=== PATIENT | female | born 1995 | race Caucasian/White ===

== ENCOUNTER 2017-11-07 05:41 | Day surgery (SDC) | payer BC ==
[2017-11-07] VITALS (14 sets, daily range): BP systolic 99–134; BP diastolic 42–90
[~2017-11-07] VITALS: Ht 160 cm; Wt 52.6 kg
[~2017-11-07 05:41] MED LIST: LATUDA40 MG PO
[2017-11-07] MEDS ORDERED: CELEXA10 MG ORAL (06:09)
[2017-11-07] MEDS ORDERED: BUPROPION XL300 M1 PO (06:09)
[2017-11-07] MEDS ORDERED: TESTOSTERO200 MG/1 M IM (06:37)
[2017-11-07] MEDS ORDERED: EPINEPHrine 1mg/1ml Amp ONE (07:11)
[2017-11-07] MEDS ORDERED: Bacitracin 50000 Units Vial ONE (07:11)
[2017-11-07] MEDS ORDERED: Bacitracin Oint 15gm Tube TOPIC ONE (07:11)
[2017-11-07] MEDS ORDERED: Muri-Lube ONE ×2 (07:11→10:09)
[2017-11-07] MEDS ORDERED: Lidocaine 1% 10mg/ml/EPI 0.01mg/ml 50ml INJ ONE (07:11)
[2017-11-07] MEDS ORDERED: Bupivacaine 0.25% Inj 30ml INJ ONE (07:11)
[2017-11-07] MEDS ORDERED: Dyna-Hex 2% Top Sol 2oz TOPIC ONE (07:15)
--- NOTE | 2017-11-07 07:15 | Pre-Procedure Note/Attestation ---
Pre-Procedure Note/Attestation Complete Prior to Procedure Planned Procedure: bilateral Procedure Narrative: mastectomy with nipple graft Indications for Procedure Pre-Operative Diagnosis: gender dysphoria Attestation I attest that I discussed the nature of the procedure; its benefits; risks and complications; and alternatives (and the risks and benefits of such alternatives ), prior to the procedure, with the patient (or the patient's legal business services sales representative). I attest that, if there was a reasonable possibility of needing a blood transfusion, the patient (or the patient's legal business services sales representative) was given the [facility] standardized written summary, pursuant to the Gregor Shannen Blood Safety Act ([place] Health and Safety Code # 1645, as amended). I attest that I re-evaluated the patient just prior to the surgery and that there has been no change in the patient's H&P, except as documented below: YUDITH KHOURY M.D. Nov 07, 2017 07:15
[2017-11-07] MEDS ORDERED: NS Irrig 1000ml ONE (07:30)
[2017-11-07] MEDS ORDERED: Morphine Sulfate 10mg/ml Inj ONE (07:30)
[2017-11-07] MEDS ORDERED: Ketorolac 30mg Inj ONE (07:30)
[2017-11-07] MEDS ORDERED: Zemuron 50mg/5ml Inj IV ONE (07:30)
[2017-11-07] MEDS ORDERED: Sterile Water Irrig 1000ml IRRIG ONE (07:30)
[2017-11-07] MEDS ORDERED: LR 1000ml ONE (07:30)
[2017-11-07] MEDS ORDERED: fentaNYL 100 mcg/2 mL IV ONE (07:30)
[2017-11-07] MEDS ORDERED: Succinylcholine 20mg/ml 10ml vial ONE (07:30)
[2017-11-07] MEDS ORDERED: Propofol 200mg/20ml IV ONE (07:30)
[2017-11-07] MEDS ORDERED: Midazolam 2mg/2ml Inj ONE (07:30)
[2017-11-07] MEDS ORDERED: Dexamethasone 4mg/ml vial ONE (07:30)
[2017-11-07] MEDS ORDERED: Neostigmine 1mg/ml 10ml Inj ONE (07:30)
[2017-11-07] MEDS ORDERED: TransDerm Scop 1mg/72HR Patch TDERMAL ONE (07:32)
[2017-11-07] MEDS ORDERED: LR 1000ml 1,000 ML IVLG SCH (08:29)
--- NOTE | 2017-11-07 08:29 | Anethesia Preoperative Eval ---
Anesthesia Pre-op PMH/ROS General Date of Evaluation: Nov 07, 2017 Time of Evaluation: 07:20 Anesthesiologist: Slade ASA Score: ASA 2 Mallampati Score Class I : Soft palate, uvula, fauces, pillars visible Class II: Soft palate, uvula, fauces visible Class III: Soft palate, base of uvula visible Class IV: Only hard plate visible Mallampati Classification: Class II Surgeon: Romy Diagnosis: Gender dysphoria Surgical Procedure: Bilateral mastectomy Anesthesia History: none Family History: no anesthesia problems Allergies: Coded Allergies: No Known Allergies (Unverified , 11/07/17) Medications: see eMAR Past Medical History Cardiovascular: Denies: HTN, CAD, [place], valve dz, arrhythmia, other Pulmonary: Denies: asthma, COPD, PORFIRIO, other Gastrointestinal/Genitourinary: Denies: GERD, CRI, ESRD, other Neurologic/Psychiatric: Reports: depression/anxiety, Denies: dementia, CVA, TIA, other Endocrine: Denies: DM, hypothyroidism, steroids, other HEENT: Denies: cataract (L), cataract (R), glaucoma, [place]AND (L), [place]AND (R), other Hematology/Immune: Denies: anemia, DVT, bleeding disorder, other Musculoskeletal/Integumentary: Denies: OA, RA, DJD, DDD, edema, other PMH Narrative: as above PSxH Narrative: none Anesthesia Pre-op Phys. Exam Physician Exam Last Vital Signs Date Time Temp Pulse Resp B/P (MAP) Pulse Ox O2 Delivery O2 Flow Rate FiO2 11/07/17 06:32 98.0 73 18 125/90 99 Room Air 98.0 Constitutional: NAD Neurologic: CN 2-12 intact Cardiovascular: RRR Respiratory: CTA Gastrointestinal: S/NT/ND Airway Exam Mallampati Score: Class II MO: full Neck: flexible ROM: full Teeth: intact Dentures: no upper, no lower Anesthesia Pre-op A/P Labs see chart Urine Test Test 11/07/17 05:55 Urine HCG, Qualitative Negative Risk Assessment & Plan Assessment: ASA 2 Plan: Ga with ETT PONV prevention Status Change Before Surgery: No Pre-Antibiotics Drug: Ancef 1 gr. Given Within 1 Hr of Incision: Yes Time Given: 07:52 LATASHA CHAUDHRY M.D. Nov 07, 2017 08:29
[2017-11-07] MEDS ORDERED: Hydromorphone 0.5mg/0.5ml inj IVP PRN (08:30)
[2017-11-07] MEDS ORDERED: DiphenhydrAMINE 50mg/ml Inj IVP PRN (08:30)
[2017-11-07] MEDS ORDERED: Midazolam 2mg/2ml Inj IVP PRN (08:30)
[2017-11-07] MEDS ORDERED: Meperidine 50mg/ml Inj(FOR RIGORS ONLY) IV PRN ×2 (08:30)
[2017-11-07] MEDS ORDERED: Ketorolac 30mg Inj IV PRN (08:30)
--- NOTE | 2017-11-07 11:19 | Operative Note - PDOC ---
Operative Note Operative Note Date of Operation/Procedure: Nov 07, 2017 Pre-op Diagnosis: gender dysphoria Procedure: bilateral mastectomy, bilateral nipple areola reconstruction with free nipple graft Post-op Diagnosis: same Post-op Diagnosis: same as pre-op Surgeon: Romy Anesthesiologist: Slade Anesthesia: general Specimen: yes - 1) right breast, 2) left breast Complications: none Condition: stable Estimated Blood Loss: minimal Drains: STEPHANIE - x2 Implant(s) used?: No YUDITH KHOURY M.D. Nov 07, 2017 11:19
--- NOTE | 2017-11-07 11:20 | Discharge Instructions ---
Discharge Instructions Discharge Instructions Follow up with: Dr. Khoury November 12 Diet: regular Activity: ambulate For Surgical Patients Dressing Care: keep dry and clean January shower: No For Congestive Heart Failure Reminder Report to your physician any weight gain of 5 pounds or more in one week. YUDITH KHOURY M.D. Nov 07, 2017 11:20
--- NOTE | 2017-11-07 11:32 | Immediate Post-Op Evaluation ---
Immediate Post-Op Evalulation Immediate Post-Op Evalulation Procedure: Bilateral mastectomy with nipple reconstruction Date of Evaluation: Nov 07, 2017 Time of Evaluation: 11:30 IV Fluids: 1300 Blood Products: none Estimated Blood Loss: 100 Urinary Output: 150 Blood Pressure Systolic: 106 Blood Pressure Diastolic: 58 Pulse Rate: 72 Respiratory Rate: 20 O2 Sat by Pulse Oximetry: 99 Temperature (Fahrenheit): 98.3 Pain Score (1-10): 2 Nausea: No Vomiting: No Complications none Patient Status: reacts, patent, extubated, none Hydration Status: adequate LATASHA CHAUDHRY M.D. Nov 07, 2017 11:31
[2017-11-07] MEDS ORDERED: HYDROmorphone 1mg/ml Carpuject SUBQ PRN (14:31)
[2017-11-07] MEDS ORDERED: D5 1/2NS 1,000 ML IV SCH (14:31)
[2017-11-07] MEDS ORDERED: Norco 5mg/325mg tab ORAL PRN (14:31)
[2017-11-07] MEDS ORDERED: Tylenol #3 tab (300mg/30mg) ORAL PRN (14:31)
--- NOTE | 2017-11-07 15:46 | 48 Hour Post Anesthesia Eval ---
Post Anesthesia Evaluation Procedure: Bilateral mastectomy with nipple reconstruction Date of Evaluation: Nov 07, 2017 Time of Evaluation: 14:20 Blood Pressure Systolic: 116 0: 72 Pulse Rate: 68 Respiratory Rate: 20 Temperature (Fahrenheit): 97.8 O2 Sat by Pulse Oximetry: 98 Airway: patent Nausea: No Vomiting: No Pain Intensity: 3 Hydration Status: adequate Cardiopulmonary Status: stable Mental Status/LOC: patient returned to baseline Follow-up Care/Observations: n/a Post-Anesthesia Complications: none Follow-up care needed: ready to discharge LATASHA CHAUDHRY M.D. Nov 07, 2017 15:46
--- NOTE | 2017-11-07 18:47 | Operative Note - Dictated ---
DATE OF OPERATION: 11/07/2017 PREOPERATIVE DIAGNOSIS: Gender dysphoria. POSTOPERATIVE DIAGNOSIS: Gender dysphoria. PROCEDURES: 1. Bilateral subcutaneous mastectomy. 2. Bilateral nipple-areolar reconstruction with full-thickness graft (each graft 2.5 x 2.5 cm). SURGEON: Seymour Stanton M.D. ANESTHESIA: General. ESTIMATED BLOOD LOSS: Minimal. SPECIMENS: 1. Right breast. 2. Left breast. DRAINS: A 15-Latvian Marcelo x2. COMPLICATIONS: None. CONDITION: To recovery room stable. INDICATION FOR PROCEDURE: This is a very pleasant, 22-year-old transgender male who has been undergoing the process of transition. He desires top surgery as part of his transition. He has the appropriate letter of recommendation from his therapist and meets all WPATH criteria for top surgery. I have discussed the risks, benefits, and alternatives to the procedure with him including, but not limited to, bleeding, infection, scarring, nerve injury, asymmetry, contour deformity, hematoma, seroma, loss of nipple sensation, loss of nipple graft and need for additional surgery including revisions. I discussed the orientation of the incisions and the unpredictable nature of scarring. No guarantees were made regarding the outcome. All of his questions have been answered to the best of my ability. He verbalized understanding with everything that we discussed and wishes to proceed. DESCRIPTION OF PROCEDURE: The patient was identified in the preoperative holding area and marked in the standing position. He was then brought to the operating room. He was placed in the supine position on the operating room table with his arms extended on arm boards. All bony prominences were adequately padded. Sequential compression devices were placed and intravenous antibiotics were administered. After induction of anesthesia, the patient's chest was prepped and draped in sterile fashion. Starting on the right chest first, the nipple-areolar complex was placed on manual stretch and a shinnecock measuring approximately 2.5 cm in diameter was drawn centered around the nipple. Next, a full-thickness nipple-areolar graft was harvested using a 15-blade scalpel. The graft was subsequently defatted and then wrapped in a wet gauze and placed on back table. I then proceeded to make the inframammary fold incision using a 10-blade scalpel. Dissection proceeded down through the subcutaneous tissues and breast parenchyma until the level of the pectoralis major fascia was reached. After this was done, I then made the superior skin incision on the breast with a 10-blade scalpel. Dissection proceeded down to the level of Jayne fascia. Skin hooks were then used to retract the skin and a plane of dissection was created in a superior direction towards the clavicle between the subcutaneous tissue and breast parenchyma. After this was done, I then proceeded to elevate the breast tissue off of the pectoralis major fascia proceeding from a medial to lateral direction. The specimen was then passed off the table. Hemostasis was achieved and the wound was irrigated with saline. A 15-Latvian Marcelo drain was then placed within the wound and brought out through a separate stab incision and secured using 2-0 silk suture. Skin isabela were then used to temporarily reapproximate the skin. I shifted my attention to the contralateral side where the identical procedure was performed. The patient was then sat up on the operating room table and it appeared that he had reasonable symmetry between the two sides of the chest. I then used a marking pen to draw the new location of the nipple-areolar complex on each side and this was confirmed with measurements. He was then placed back in the supine position. Interrupted 0 Vicryl sutures were used to reapproximate Jayne fascia on each side. The skin isabela were removed. The dermal layers were closed with interrupted 3-0 PDS suture followed by running 3-0 Monocryl suture for the skin. Next, I used a 15-blade scalpel to incise the marking corresponding to the proposed new location of the nipple-areolar complex on each chest. The skin was de-epithelialized. Each of the full-thickness nipple-areolar composite grafts was then brought onto the appropriate side of the chest and secured in place using a running 5-0 fast absorbing suture. Next, several 2-0 silk suture ties were placed around the periphery of each nipple-areolar complex. A skin graft bolster was then fashioned and secured into place over each full-thickness nipple-areolar graft and tied down using the silk sutures. Next, a total of 20 mL of local anesthetic consisting of equal parts 1% lidocaine with epinephrine and 0.25% plain Marcaine was injected into the incisions. Sterile dressings were then applied. The patient tolerated the procedure well and was sent to the recovery room in stable condition. All instruments, sharp, and sponge counts were correct at the conclusion of the case. Seymour Stanton M.D. DR: CHANTELLE JOB#: [id number] CC: [id number]
== END 2017-11-07 14:05 | disposition home or self-care (01) ==
LOC: SUR 05:41
DX: F64.0 Transsexualism (principal); F32.9 Major depressive disorder, single episode, unspecified; F41.9 Anxiety disorder, unspecified
CPT/HCPCS: 15200; 19303; 81025; J0171; J0330; J0690; J1100; J1885; J2250; J2270; J2405; J2704; J2710; J3010; J3490; J7120; 94003; 94150